=== PATIENT | male | born 1995 | race Caucasian/White ===

== ENCOUNTER 2021-12-06 23:07 | Emergency (ER) | payer MEDICAID ==
[~2021-12-06] VITALS: Ht 180.3 cm; Wt 89.0 kg
[2021-12-06 23:11] VITALS: BP 140/80
[2021-12-07] MEDS ORDERED: SODIUM CHLORIDE 0.9% 1,000 ML IV ONE
== END 2021-12-07 02:20 | disposition left against medical advice (07) ==
LOC: ER 23:07
DX: R07.89 Other chest pain (principal); V49.49XA Driver injured in collision with other motor vehicles in traffic accident, initial encounter; Y93.89 Activity, other specified; Y92.488 Other paved roadways as the place of occurrence of the external cause
CPT/HCPCS: 82962; 93005; 99283